=== PATIENT | male | born 1975 | race Caucasian/White ===

== ENCOUNTER 2021-05-13 18:05 | Emergency (ER) | payer OTHER ==
[~2021-05-13] VITALS: Ht 188 cm; Wt 104.3 kg
[2021-05-13 18:25] VITALS: BP_SYST 151
--- NOTE | 2021-05-13 18:25 | NUR ---
Patient to ER bed 5 to gown for evaluation. Side rails up. Report given to ERIK Fung.
--- NOTE | 2021-05-13 18:32 | NUR ---
PT CAME IN FROM HOME C/O LUMP UNDER SKIN WITH REDNESS AND PAIN ON LEFT UPPER THIGH NEAR GROIN AREA. STATES HE NOTICED TENDERNESS A COUPLE OF DAYS AGO BUT SAYS THE LUMP HAS GOTTEN BIGGER AND MORE PAINFUL. DENIES DRAINAGE. PT IS AMBULATORY, AAOX4, V/S STABLE
--- NOTE | 2021-05-13 20:12 | NUR ---
ER Dr. Leung at bedside examining patient.
[2021-05-13] MEDS: HYDROcodone/ACETAMIN 10-325 MG TAB PO ONE (20:30)
--- NOTE | 2021-05-13 22:26 | NUR ---
I&D Procedure done by Dr. Leung to using sterile technique. Lidocaine 1% used. Wound packed with . Adaptic, 4x4 and margaret to wound. amt of bleeding noted. Wound care discussed w/ patient. Pt tolerated procedure well.
[2021-05-13] MEDS ORDERED: LIDOCAINE 1%, 20 ML MDV 20 ML ONE (22:30)
[2021-05-13] MEDS ORDERED: CLIN-22 PO (23:10)
[2021-05-13] MEDS ORDERED: HYDR-3921 PO (23:10)
[2021-05-13 23:47] VITALS: BP_SYST 151
--- NOTE | 2021-05-13 23:47 | NUR ---
Patient given written and verbal discharge instructions and verbalizes understanding. ER MD discussed with patient the results and treatment provided. Patient in stable condition. ID arm band removed. Rx of Clindamycin and Delta given. Patient educated on pain management and to follow up with PMD. Pain Scale 1/10. Opportunity for questions provided and answered. Medication side effect fact sheet provided.
== END 2021-05-13 23:47 | disposition home or self-care (01) ==
LOC: SED 18:05
DX: L02.416 Cutaneous abscess of left lower limb (principal); J45.909 Unspecified asthma, uncomplicated; Z79.899 Other long term (current) drug therapy
CPT/HCPCS: 10060; 82962; 99284; J2001; 99283

== ENCOUNTER 2021-06-24 19:07 | Emergency (ER) | payer OTHER ==
[~2021-06-24] VITALS: Ht 188 cm; Wt 104.3 kg
[~2021-06-24 19:07] MED LIST: CLIN-22 PO; HYDR-3921 PO
[2021-06-24 19:15] VITALS: BP_SYST 140
--- NOTE | 2021-06-24 19:15 | NUR ---
Patient triaged and placed in waiting room. VSS and patient appears in no acute distress at this time. Awaiting available bed, and MD notified of need for MSE.
--- NOTE | 2021-06-24 21:20 | NUR ---
call pt name in the WR.No answer.
--- NOTE | 2021-06-24 21:25 | NUR ---
call pt name in the WR.No answer.
--- NOTE | 2021-06-24 21:30 | NUR ---
call pt name in the WR.No answer.
== END 2021-06-24 21:30 | disposition left against medical advice (07) ==
LOC: SED 19:07
DX: M54.9 Dorsalgia, unspecified (principal); Z53.21 Procedure and treatment not carried out due to patient leaving prior to being seen by health care provider